=== PATIENT | male | born 1950 | race Hispanic/Latino ===

== ENCOUNTER 2018-04-15 19:23 | Inpatient (IN) | payer BC, MEDICARE ==
[~2018-04-15 19:23] MED LIST: ISOVUE-370 76%-LOCM 1 ML ONE
[2018-04-15] MEDS ORDERED: Acetaminophen 500 MG TAB ONE (19:48)
[2018-04-15 19:49] LABS: Bilirubin Negative (Negative); Blood, Urine Trace (Negative); Clarity CLOUDY (Clear); Glucose, Urine (Dipstick) >=1000 mg/dL (Negative); Leukocyte Small (Negative); Nitrite Negative (Negative); Protein, Urine (Dipstick) 100 mg/dL (Neg-Trace); Specific Gravity, Urine 1.028 (1.002-1.036); Urobilinogen 0.2 mg/dL (0.2-1.0)
[2018-04-15 19:51] LABS: Bacteria/HPF None Seen HPF (None Seen); Hyaline Casts/LPF 0-3 HYALINE CAST LPF (0-3 Hyaline); Pathc Cast-AUWi Flag 0.14 (0-2.49); Squamous Epithelial None Seen HPF (0-3)
[2018-04-15 19:55] LABS: #Eosinphils 0.1 thou/uL (0.0-0.7); #Lymphocytes 0.7 thou/uL (1.20-3.40); #Monocytes 0.5 thou/uL (0.11-0.59); %Basophils 0.2 % (0.0-1.0); %Eosinophils 1.1 % (0.0-10.0); %Lymphocytes 8.7 % (21.0-51.0); %Monocytes 5.8 % (0.0-10.0); %Neutrophils 84.2 % (42.0-75.0); Mean Corpuscular HGB CONC 33.4 g/dL (32.0-36.0); Mean Corpuscular Hemoglobin 31.5 pg (27.0-31.0); Mean Corpuscular Volume 94.6 fL (78.0-98.0); Mean Platelet Volume 7.7 fL (7.4-10.4); Platelet Count 279 thou/uL (130-400); RBC Distribution Width 11.2 % (11.5-14.5); White Blood Cell (WBC) Count 8.4 thou/uL (4.8-10.8)
[2018-04-15 20:15] LABS: ALT (SGPT) 16 U/L (8-55); AST (SGOT) 19 U/L (5-34); Albumin 4.1 g/dL (3.4-4.8); Alkaline Phosphatase 60 U/L (40-150); Anion Gap 15 mmol/L (10-20); BUN (Urea Nitrogen) 20 mg/dL (8.4-25.7); Bilirubin, Total 0.3 mg/dL (0.2-1.2); Calc. Creatinine Clearance 0 mL/min (70-130); Carbon Dioxide 22 mmol/L (23-31); Chloride 100 mmol/L (98-107); Estimated GFR-MDRD 52; Globulin 3.9 g/dL (2.4-3.5); Glucose 339 mg/dL (80-115); Potassium 4.5 mmol/L (3.5-5.1); Sodium 132 mmol/L (136-145)
[2018-04-15] MEDS ORDERED: Ondansetron HCl/PF 4 MG/2 ML Vial IVP PRN (20:22)
[2018-04-15] MEDS ORDERED: Acetaminophen 325 MG TAB PO PRN (20:22)
[2018-04-15] MEDS ORDERED: Piperacillin/Tazobactam 4.5 GM VIAL ONE (21:20)
[2018-04-15 21:36] LABS: Base Excess-Venous -4.6 mmol/L (0 (+/- 2.5)); Bicarbonate (HCO3v) 19.3 mmol/L (1.0-85.0); CO2 Tension (PvCO2) 30.4 mmHg (41.0-51.0); Calcium, Ionized 1.14 mmol/L (1.12-1.32); Hemoglobin - Calc 9.9 g/dL (12.0-18.0); O2 Tension (PvO2) 119.3 mmHg (35.0-45.0); Potassium 4.1 mmol/L (3.4-4.7); T. Carbon Dioxide 20.2 mmol/L (1.0-85.0); pH (Venous) 7.409 (7.35-7.45); vO2 Saturation-calc 98.8 % (94-98)
--- NOTE | 2018-04-15 21:42 | RAD ---
RADIOGRAPH CHEST 1 VIEW: HISTORY: 67-year-old male with sepsis, fever. FINDINGS: There is no air space density, pulmonary edema, or pneumothorax. The lateral costophrenic angles are sharp. IMPRESSION: No acute pulmonary findings. shai POS: [facility]
--- NOTE | 2018-04-15 23:00 | HP ---
PRIMARY CARE PHYSICIAN: Tanner Fall DO CODE STATUS: FULL CODE. TIME OF EVALUATION: 8:35 p.m. CHIEF COMPLAINT: Abdominal pain, right flank pain, and fever. HISTORY OF PRESENT ILLNESS: This is a 67-year-old male patient with past medical history of diabetes came to the hospital after having fever 103 to 103.9, also right flank pain. The symptoms have been present for 4 days. He got some ibuprofen at home, but did not improve. No clear triggers, no marily viating factors. The patient's symptoms got so severe that he decided to come to the hospital. The patient also reported associated dysuria, chills. REVIEW OF SYSTEMS: Constitutional: The patient has fever, chills, generalized weakness. Respirator y: No cough, sputum production, shortness of breath. Cardiovascular: No chest pain or palpitations . Gastrointestinal: The patient had nausea. No vomiting, diarrhea, or abdominal pain. Central Ner vous System: No dizziness, headache, or feeling lightheaded. Genitourinary: The patient has right flank pain and increased urinary frequency, dysuria. Extremities: No leg swelling. All other syste ms were reviewed and are negative except for the findings mentioned above. PAST MEDICAL HISTORY: Positive for diabetes, obesity, hyperlipidemia, hypertension. PAST SURGICAL HISTORY: Back surgery. PSYCHIATRIC HISTORY: No psychiatric history. SOCIAL HISTORY: No alcohol, no drugs, no smoking history. FAMILY HISTORY: Reviewed and noncontributory for current presentation. DRUG ALLERGIES: No known drug allergies reported. MEDICATIONS: Glyburide, , tamsulosin, fenofibrate. PHYSICAL EXAMINATION: VITAL SIGNS: On presentation, blood pressure 160/98 with heart rate 120, respiratory rate was 18, te mperature 103.1, pain 10/10, oxygen saturation 98 on room air. GENERAL APPEARANCE: The patient is alert, oriented, not in acute distress. HEENT: Eyes, normal conjunctivae. Moist oral mucosa. Anicteric. NECK: No JVD. RESPIRATORY: Bilateral air entry. No rales, no wheezing. Symmetric expansion. CARDIOVASCULAR: The patient is tachycardic, normal rhythm. No murmurs. No gallop. No edema. ABDOMEN: Soft. Normal bowel sounds. MUSCULOSKELETAL: Baseline range of motion and strength. No tenderness. SKIN: Warm and intact. No pallor, no rash, no redness. Peripheral pulses are present. Capillary r efill seems to be intact. NEUROLOGIC: Baseline sensorium. No evidence of any new focal weakness. Baseline speech. Cranial n erves seems to be intact. PSYCHIATRIC: The patient is in good mood. No anxiety. Oriented. Optimal judgment. GENITOURINARY: The patient has right flank pain that is moderate to severe during my examination. IMAGING: Chest x-ray was done. The patient had no acute pulmonary findings. CAT scan of the abdome n to rule out complicated UTI was ordered and still pending. LABORATORY DATA: Labs were reviewed. The patient has white count 8.4, hemoglobin 12, hematocrit 36, MCV 94. Blood gas, VBG was done. The patient has pH 7.4. Chemistry: Sodium 132, potassium 4.5, c hloride 100, carbon dioxide 22, anion gap 15, creatinine 1.37. We do not have a previous value for c reatinine to compare. GFR 52, glucose 339. LFTs were normal. Globulin 3.9, albumin globulin ratio is 1.1. Urinalysis was done. White count was greater than 50, too numerous to count, with glucosuri a and proteinuria. ASSESSMENT AND PLAN: The patient will be placed in the hospital with following medical problems: 1. Sepsis. The patient has fever, tachycardia. Source is right urinary tract infection, possible p yelonephritis. We will do CAT scan to rule out complicated UTI being a male patient with these sympt oms on presentation and also because the patient is diabetic, high risk for complications. The patie nt has been started on antibiotics. We will follow up cultures. We will adjust treatment as needed. 2. Urinary tract infection. Treatment as above. 3. Chronic normocytic anemia. Hemoglobin is 12. This is mild. No need for any acute intervention as inpatient. 4. Hyponatremia with sodium 132. This is minimal. No need for any acute intervention. 5. Mild metabolic acidosis with a CO2 of 22. This may be related to acute kidney injury. We will t reat underlying condition. 6. Possible acute kidney injury. We do not have a previous value to compare. Creatinine is 1.37 wi th GFR of 52. We will hydrate. We will monitor kidney function. We will adjust treatment as needed . If not improved, he might need Nephro for assistance with this case. 7. Uncontrolled diabetes with blood sugar 339. The patient is hyperglycemic. We will place the pat ient on sliding scale. We will adjust treatment as needed. 8. Obesity. The patient is advised to lose weight. 9. Hyperlipidemia. Low-cholesterol diet is advised. 10. Uncontrolled blood pressure. The patient presented with systolic blood pressure 179. We will r econcile home meds. We will adjust treatment as needed. We will not treat aggressively since the pa tient is septic and had high risk of septic shock and hemodynamic decompensation. 11. Deep venous thrombosis prophylaxis.
[2018-04-15] MEDS ORDERED: Dextrose 50% Abboject 50 ML SYRINGE SLOW IVP PRN (23:29)
[2018-04-15] MEDS ORDERED: Dextrose 5% in Water 1,000 ML IV PRN (23:29)
[2018-04-16] MEDS: Sodium Chloride 0.9% 1,000 ML IV SCH ×3 (00:12→20:05)
[2018-04-16] MEDS: cefTRIAXone\\ROCEPHIN 1 GM in Sodium Chloride 0.9% 100 ML IVPB SCH (00:15)
[2018-04-16] MEDS: Heparin 5,000 UNITS/ML VIAL SC SCH ×4 (02:13→20:23)
[2018-04-16 05:04] LABS: #Eosinphils 0.1 thou/uL (0.0-0.7); #Monocytes 1.1 thou/uL (0.11-0.59); #Neutrophils 7.3 thou/uL (1.40-6.50); %Basophils 0.3 % (0.0-1.0); %Eosinophils 0.8 % (0.0-10.0); %Lymphocytes 10.1 % (21.0-51.0); %Monocytes 11.2 % (0.0-10.0); %Neutrophils 77.7 % (42.0-75.0); Hemoglobin 10.1 g/dL (14.0-18.0); Mean Corpuscular HGB CONC 32.2 g/dL (32.0-36.0); Mean Corpuscular Hemoglobin 30.6 pg (27.0-31.0); Mean Platelet Volume 7.7 fL (7.4-10.4); Platelet Count 237 thou/uL (130-400); RBC Distribution Width 11.4 % (11.5-14.5); Red Blood Cell (RBC) Count 3.31 mill/uL (4.70-6.10); White Blood Cell (WBC) Count 9.4 thou/uL (4.8-10.8)
[2018-04-16 05:35] LABS: Anion Gap 10 mmol/L (10-20); BUN (Urea Nitrogen) 17 mg/dL (8.4-25.7); Calc. Creatinine Clearance 0 mL/min (70-130); Calcium 8.2 mg/dL (7.8-10.44); Carbon Dioxide 19 mmol/L (23-31); Chloride 105 mmol/L (98-107); Estimated GFR-MDRD 62; Glucose 330 mg/dL (80-115); Potassium 4.1 mmol/L (3.5-5.1); Sodium 130 mmol/L (136-145)
[2018-04-16] MEDS: HumaLOG 300 UNITS/3 ML VIAL SC PRN ×3 (06:27→17:35)
--- NOTE | 2018-04-16 08:17 | CT ---
PRELIMINARY REPORT/[facility]/EMERGENTY AFTER-HOURS PROCEDURE CT Abdomen and Pelvis With Intravenous Contrast CLINICAL HISTORY: 67 years old, male; Pain; Abdominal pain; Generalized; Patient HX: Abd pain. R/O complicated uti TECHNIQUE: Axial computed tomography images of the abdomen and pelvis with intravenous contrast. Coronal reformatted images were created and reviewed. COMPARISON: No relevant prior studies available. FINDINGS: Calcified granuloma in the right middle lobe. The lung bases otherwise appear essentially clear. Coronary artery calcifications noted. Kidneys: No hydronephrosis of either kidney. No visible renal or ureteral calculus. Mild perinephric stranding bilaterally. This is a nonspecific appearance and could well be chronic. Possibility of pyelonephritis is not entirely excluded, please correlate clinically. No significant perinephric fluid. The kidneys enhance homogeneously. No definite gallbladder abnormality by CT. No biliary tree dilation. Unremarkable appearance of the liver, spleen, adrenal glands, and pancreas. No free air, ascites, or bowel distention. No evidence for abdominal aortic aneurysm. No retroperitoneal adenopathy. CT pelvis: Moderate diffuse urinary bladder wall thickening, with some indistinctness of the wall. While nonspecific, findings are suspicious for possible cystitis. Please correlate clinically. The appendix is visualized and appears normal. There are no CT findings to strongly suggest diverticulitis. Prominent enlargement with transverse diameter of almost 6 cm. Correlation with PSA levels may be use ful to help exclude prostate malignancy. IMPRESSION: Moderate diffuse urinary bladder wall thickening, suspicious for possible cystitis. No hydronephrosis of either kidney. No visible renal or ureteral calculus. Mild perinephric stranding bilaterally, see above discussion. No free air or bowel distention. Normal appendix. Prominent prostate enlargement, details above. Other findings discussed above. Thank you for allowing us to participate in the care of your patient. Dictated and Authenticated by: Tai Spring MD 04/16/2018 1:58 AM Central Time ([place] & [place]) FINAL REPORT CT ABDOMEN AND PELVIS WITH IV CONTRAST: DATE: 04/16/18. TIME: Performed on an emergency basis at 0044 hours. HISTORY: Abdominal pain. Fever. FINDINGS: NO comparison. Agree with the preliminary report by Dr. Spring from [facility]. Urinary bladd er wall thickening and adjacent haziness is suspicious for cystitis. Correlation with other clinical findings is required. POS: [facility]
[2018-04-16] MEDS ORDERED: Prevnar 13-Val Conj/PF 0.5 ML SYRINGE IM ONE (09:00)
[2018-04-16] MEDS: Insulin Glargine 15 UNITS in Pre-Filled Syringe 1 EACH SC SCH ×2 (10:17→20:23)
--- NOTE | 2018-04-16 12:25 | PDOC.PN ---
- Subjective Encounter Start Date: 04/16/18 Encounter Start Time: 09:45 Subjective: c/o abd pain in rlq, urinary freq and urgency is better -: overall is feeling better than when he came to ER - Objective Resuscitation Status: Resuscitation Status FULL:Full Resuscitation MAR Reviewed: Yes Vital Signs & Weight: Vital Signs (12 hours) Temp Pulse Resp BP Pulse Ox 04/16/18 10:39 100.1 F H 97 22 H 119/67 93 L 04/16/18 03:53 98.0 F 97 16 103/58 L 93 L Weight Weight 7.993 oz I&O: 04/15/18 04/16/18 04/17/18 06:59 06:59 06:59 Intake Total 1090 Output Total 600 Balance 490 Result Diagrams: 04/16/18 04:17 04/16/18 04:17 Additional Labs: Accuchecks 04/16/18 04/15/18 06:12 23:47 POC Glucose 306 H 305 H Phys Exam - Physical Examination HEENT: PERRLA, moist MMs Neck: no JVD, supple Respiratory: no wheezing, no rales Cardiovascular: RRR, no significant murmur Gastrointestinal: soft, positive bowel sounds rlq tenderness+, no rigidity Musculoskeletal: no edema, pulses present Neurological: non-focal, moves all 4 limbs Psychiatric: normal affect, A&O x 3 Dx/Plan (1) Pyelonephritis Code(s): N12 - TUBULO-INTERSTITIAL NEPHRITIS, NOT SPCF ACUTE OR CHRONIC Status: Acute (2) Sepsis Code(s): A41.9 - SEPSIS, UNSPECIFIED ORGANISM Status: Acute Qualifiers: Sepsis type: sepsis due to unspecified organism Qualified Code(s): A41.9 - Sepsis, unspecified organism (3) DM type 2 (diabetes mellitus, type 2) Status: Chronic Qualifiers: Diabetes mellitus halfway insulin use: without terminal block assembler use Diabetes mellitus complication status: with unspecified complications Qualified Code(s) : E11.8 - Type 2 diabetes mellitus with unspecified complications (4) HTN (hypertension) Code(s): I10 - ESSENTIAL (PRIMARY) HYPERTENSION Status: Chronic Qualifiers: Hypertension type: essential hypertension Qualified Code(s): I10 - Essential (primary) hypertension (5) Dyslipidemia Code(s): E78.5 - HYPERLIPIDEMIA, UNSPECIFIED Status: Chronic (6) Anemia Code(s): D64.9 - ANEMIA, UNSPECIFIED Status: Chronic Qualifiers: Anemia type: unspecified type Qualified Code(s): D64.9 - Anemia, unspecified (7) Metabolic acidosis Code(s): E87.2 - ACIDOSIS Status: Acute (8) Hyponatremia Code(s): E87.1 - HYPO-OSMOLALITY AND HYPONATREMIA Status: Acute - Plan ct abd results noted -: is on ceftriaxone -: iv fluids, lantus bid -: to ambulate as tolerated -: await cultures * . Review of Systems - Medications/Allergies Allergies/Adverse Reactions: Allergies Allergy/AdvReac Type Severity Reaction Status Date / Time No Known Allergies Allergy Verified 04/15/18 23:18 Medications: Current Medications Acetaminophen (Tylenol) 650 mg PO Q4H PRN PRN Reason: Headache/Fever or Pain Last Admin: 04/16/18 10:48 Dose: 650 mg Dextrose/Water (Dextrose 50%) 25 gm SLOW IVP PRN PRN PRN Reason: Hypoglycemia Glucagon (Glucagon) 1 mg IM PRN PRN PRN Reason: Hypoglycemia Heparin Sodium (Porcine) (Heparin) 5,000 units SC TID [facility] Last Admin: 04/16/18 09:33 Dose: 5,000 units Ceftriaxone Sodium 1 gm/ (Sodium Chloride) 100 mls @ 200 mls/hr IVPB Q24HR [facility] Last Admin: 04/16/18 00:15 Dose: 100 mls Sodium Chloride (Normal Saline 0.9%) 1,000 mls @ 125 mls/hr IV .Q8H [facility] Last Admin: 04/16/18 09:31 Dose: 1,000 mls Dextrose/Water (D5w) 1,000 mls @ 0 mls/hr IV .Q0M PRN PRN Reason: Hypoglycemia Insulin Glargine 15 units/ (Miscellaneous Medication) 0.15 mls @ 0 mls/hr SC BID [facility] Last Admin: 04/16/18 10:17 Dose: 0.15 mls Insulin Human Lispro (Humalog) 0 units SC .MILD SLIDING SCALE PRN PRN Reason: Mild Correctional Scale Last Admin: 04/16/18 06:27 Dose: 5 unit Ondansetron HCl (Zofran) 4 mg IVP Q6H PRN PRN Reason: Nausea/Vomiting
[2018-04-17] MEDS: cefTRIAXone\\ROCEPHIN 1 GM in Sodium Chloride 0.9% 100 ML IVPB SCH ×2 (00:02→23:56)
[2018-04-17] MEDS: Sodium Chloride 0.9% 1,000 ML IV SCH ×4 (03:52→23:56)
[2018-04-17] MEDS: HumaLOG 300 UNITS/3 ML VIAL SC PRN ×2 (05:18→15:28)
[2018-04-17] MEDS: Tamsulosin HCl 0.4 MG CAP PO SCH ×2 (08:28→22:09)
[2018-04-17] MEDS: Heparin 5,000 UNITS/ML VIAL SC SCH ×3 (08:28→22:10)
[2018-04-17] MEDS: Fenofibrate Nanocrystallized 145 MG TAB PO SCH (08:28)
[2018-04-17] MEDS: Insulin Glargine 15 UNITS in Pre-Filled Syringe 1 EACH SC SCH ×2 (08:28→22:09)
[2018-04-17] MEDS: Atorvastatin Calcium 20 MG TAB PO SCH (08:28)
[2018-04-17] MEDS ORDERED: GLYBURIDE PO SCH ×2 (09:00→21:00)
[2018-04-17] MEDS ORDERED: METFORMIN HCL PO SCH ×2 (09:00→21:00)
[2018-04-17] MEDS ORDERED: [UNRECOGNIZED DRUG - OTHER] PO SCH (09:00)
[2018-04-17] MEDS ORDERED: Lisinopril 10 MG TAB PO SCH (09:00)
[2018-04-17 09:16] LABS: Anion Gap 10 mmol/L (10-20); BUN (Urea Nitrogen) 11 mg/dL (8.4-25.7); Calc. Creatinine Clearance 0 mL/min (70-130); Calcium 8.7 mg/dL (7.8-10.44); Carbon Dioxide 22 mmol/L (23-31); Chloride 108 mmol/L (98-107); Estimated GFR-MDRD 89; Glucose 174 mg/dL (80-115); Potassium 3.8 mmol/L (3.5-5.1); Sodium 136 mmol/L (136-145)
[2018-04-17] MEDS: Pioglitazone HCl 45 MG TAB PO SCH (10:12)
--- NOTE | 2018-04-17 12:34 | PDOC.PN ---
- Subjective Encounter Start Date: 04/17/18 Encounter Start Time: 10:30 Subjective: feels better -: no abd pain this morning -: is ambulating in room, no sob - Objective Resuscitation Status: Resuscitation Status FULL:Full Resuscitation MAR Reviewed: Yes Vital Signs & Weight: Vital Signs (12 hours) Temp Pulse Resp BP Pulse Ox 04/17/18 07:42 98.3 F 77 17 130/76 92 L Weight Weight 7.993 oz I&O: 04/16/18 04/17/18 04/18/18 06:59 06:59 06:59 Intake Total 1090 1800 Output Total 600 1000 Balance 490 800 Result Diagrams: 04/16/18 04:17 04/17/18 08:26 Additional Labs: Accuchecks 04/17/18 04/17/18 04/16/18 11:58 05:17 20:22 POC Glucose 245 H 216 H 241 H 04/16/18 04/16/18 16:49 12:56 POC Glucose 336 H 286 H Phys Exam - Physical Examination HEENT: PERRLA, moist MMs Neck: no JVD, supple Respiratory: no wheezing, no rales Cardiovascular: RRR, no significant murmur Gastrointestinal: soft, non-tender, positive bowel sounds Musculoskeletal: no edema, pulses present Neurological: non-focal, moves all 4 limbs Psychiatric: normal affect, A&O x 3 Dx/Plan (1) Pyelonephritis Code(s): N12 - TUBULO-INTERSTITIAL NEPHRITIS, NOT SPCF ACUTE OR CHRONIC Status: Acute (2) Sepsis Code(s): A41.9 - SEPSIS, UNSPECIFIED ORGANISM Status: Acute Comment: klebsiella pneumoniae (3) DM type 2 (diabetes mellitus, type 2) Status: Chronic Qualifiers: Diabetes mellitus usp insulin use: without usp use Diabetes mellitus complication status: with unspecified complications Qualified Code(s) : E11.8 - Type 2 diabetes mellitus with unspecified complications (4) HTN (hypertension) Code(s): I10 - ESSENTIAL (PRIMARY) HYPERTENSION Status: Chronic Qualifiers: Hypertension type: essential hypertension Qualified Code(s): I10 - Essential (primary) hypertension (5) Dyslipidemia Code(s): E78.5 - HYPERLIPIDEMIA, UNSPECIFIED Status: Chronic (6) Anemia Code(s): D64.9 - ANEMIA, UNSPECIFIED Status: Chronic Qualifiers: Anemia type: unspecified type Qualified Code(s): D64.9 - Anemia, unspecified (7) Metabolic acidosis Code(s): E87.2 - ACIDOSIS Status: Resolved (8) Hyponatremia Code(s): E87.1 - HYPO-OSMOLALITY AND HYPONATREMIA Status: Resolved - Plan dm is getting controlled -: dc plan in am on levaquin/cipro, had low sbp early this am -: psa is elevated, will set up outpt appt with uro if he is not seeing one al -: on ceftriaxone, add home dose of glyburide, metformin and actos -: to ambulate more, bladder postvoid residual to be documented * . Review of Systems - Medications/Allergies Allergies/Adverse Reactions: Allergies Allergy/AdvReac Type Severity Reaction Status Date / Time No Known Allergies Allergy Verified 04/15/18 23:18 Medications: Current Medications Acetaminophen (Tylenol) 650 mg PO Q4H PRN PRN Reason: Headache/Fever or Pain Last Admin: 04/16/18 10:48 Dose: 650 mg Atorvastatin Calcium (Lipitor) 20 mg PO DAILY [facility] Last Admin: 04/17/18 08:28 Dose: 20 mg Dextrose/Water (Dextrose 50%) 25 gm SLOW IVP PRN PRN PRN Reason: Hypoglycemia Fenofibrate (Tricor) 145 mg PO DAILY [facility] Last Admin: 04/17/18 08:28 Dose: 145 mg Glucagon (Glucagon) 1 mg IM PRN PRN PRN Reason: Hypoglycemia Glyburide (Diabeta) 5 mg PO HS [facility] Glyburide (Diabeta) 10 mg PO 0730 [facility] Heparin Sodium (Porcine) (Heparin) 5,000 units SC TID [facility] Last Admin: 04/17/18 08:28 Dose: 5,000 units Ceftriaxone Sodium 1 gm/ (Sodium Chloride) 100 mls @ 200 mls/hr IVPB Q24HR [facility] Last Admin: 04/17/18 00:02 Dose: 100 mls Sodium Chloride (Normal Saline 0.9%) 1,000 mls @ 125 mls/hr IV .Q8H [facility] Last Admin: 04/17/18 10:12 Dose: 1,000 mls Dextrose/Water (D5w) 1,000 mls @ 0 mls/hr IV .Q0M PRN PRN Reason: Hypoglycemia Insulin Glargine 15 units/ (Miscellaneous Medication) 0.15 mls @ 0 mls/hr SC BID [facility] Last Admin: 04/17/18 08:28 Dose: 0.15 mls Insulin Human Lispro (Humalog) 0 units SC .MILD SLIDING SCALE PRN PRN Reason: Mild Correctional Scale Last Admin: 04/17/18 05:18 Dose: 3 unit Metformin HCl (Glucophage) 500 mg PO HS [facility] Metformin HCl (Glucophage) 1,000 mg PO 0730 [facility] Ondansetron HCl (Zofran) 4 mg IVP Q6H PRN PRN Reason: Nausea/Vomiting Pioglitazone HCl (Actos) 45 mg PO DAILY [facility] Last Admin: 04/17/18 10:12 Dose: 45 mg Sodium Chloride (Flush - Normal Saline) 10 ml IVF Q12HR [facility] Last Admin: 04/17/18 08:29 Dose: Not Given Sodium Chloride (Flush - Normal Saline) 10 ml IVF PRN PRN PRN Reason: Saline Flush Tamsulosin HCl (Flomax) 0.4 mg PO BID [facility] Last Admin: 04/17/18 08:28 Dose: 0.4 mg
[2018-04-17 20:18] VITALS: TEMP 98
[2018-04-17] MEDS ORDERED: glyBURIDE 5 MG TAB PO SCH (21:00)
[2018-04-17] MEDS ORDERED: [UNRECOGNIZED DRUG - OTHER] PO SCH (21:00)
[2018-04-17] MEDS ORDERED: metFORMIN 500 MG TAB PO SCH (21:00)
[2018-04-18] MEDS ORDERED: metFORMIN 500 MG TAB PO SCH (07:30)
[2018-04-18] MEDS ORDERED: glyBURIDE 5 MG TAB PO SCH (07:30)
[2018-04-18 07:31] VITALS: BP 147/71
[2018-04-18] MEDS: Fenofibrate Nanocrystallized 145 MG TAB PO SCH (08:27)
[2018-04-18] MEDS: Pioglitazone HCl 45 MG TAB PO SCH (08:27)
[2018-04-18] MEDS: Tamsulosin HCl 0.4 MG CAP PO SCH (08:27)
[2018-04-18] MEDS: Atorvastatin Calcium 20 MG TAB PO SCH (08:27)
[2018-04-18] MEDS: Heparin 5,000 UNITS/ML VIAL SC SCH (08:28)
[2018-04-18] MEDS ORDERED: Finasteride 5 MG TAB PO SCH (09:00)
[2018-04-18] MEDS: Insulin Glargine 15 UNITS in Pre-Filled Syringe 1 EACH SC SCH (10:15)
--- NOTE | 2018-04-18 20:34 | PDOC.PN ---
- Subjective Encounter Start Date: 04/18/18 Encounter Start Time: 07:45 Subjective: no chills or fever, no abd pain -: feels good, is amb and eating well - Objective Resuscitation Status: Resuscitation Status FULL:Full Resuscitation MAR Reviewed: Yes Vital Signs & Weight: Weight Weight 7.993 oz I&O: 04/17/18 04/18/18 04/19/18 06:59 06:59 06:59 Intake Total 1800 Output Total 1000 Balance 800 Result Diagrams: 04/16/18 04:17 04/17/18 08:26 Additional Labs: Accuchecks 04/18/18 04/18/18 04/17/18 10:20 06:06 20:34 POC Glucose 252 H 216 H 350 H Phys Exam - Physical Examination HEENT: PERRLA, moist MMs Neck: no JVD, supple Respiratory: no wheezing, no rales Cardiovascular: RRR, no significant murmur Gastrointestinal: soft, non-tender, positive bowel sounds Musculoskeletal: no edema, pulses present Neurological: non-focal, moves all 4 limbs Psychiatric: normal affect, A&O x 3 Dx/Plan (1) Pyelonephritis Code(s): N12 - TUBULO-INTERSTITIAL NEPHRITIS, NOT SPCF ACUTE OR CHRONIC Status: Acute (2) Sepsis Code(s): A41.9 - SEPSIS, UNSPECIFIED ORGANISM Status: Acute Comment: klebsiella pneumoniae (3) DM type 2 (diabetes mellitus, type 2) Status: Chronic Qualifiers: Diabetes mellitus intermediate project manager insulin use: without intermediate project manager use Diabetes mellitus complication status: with unspecified complications Qualified Code(s) : E11.8 - Type 2 diabetes mellitus with unspecified complications (4) HTN (hypertension) Code(s): I10 - ESSENTIAL (PRIMARY) HYPERTENSION Status: Chronic Qualifiers: Hypertension type: essential hypertension Qualified Code(s): I10 - Essential (primary) hypertension (5) Dyslipidemia Code(s): E78.5 - HYPERLIPIDEMIA, UNSPECIFIED Status: Chronic (6) Anemia Code(s): D64.9 - ANEMIA, UNSPECIFIED Status: Chronic Qualifiers: Anemia type: unspecified type Qualified Code(s): D64.9 - Anemia, unspecified (7) Metabolic acidosis Code(s): E87.2 - ACIDOSIS Status: Resolved (8) Hyponatremia Code(s): E87.1 - HYPO-OSMOLALITY AND HYPONATREMIA Status: Resolved - Plan hemostable -: levaquin -: to f/u with , d/w patient and at bedside -: dc pt home * .
--- NOTE | 2018-04-18 22:37 | DIS ---
DATE OF ADMISSION: 04/15/2018 DATE OF DISCHARGE: 04/18/2018 DISCHARGE DISPOSITION: To home. PRIMARY DISCHARGE DIAGNOSIS: Sepsis due to pyelonephritis. SECONDARY DISCHARGE DIAGNOSES: Diabetes mellitus type 2, elevated PSA for further evaluation with en larged prostate, hypertension, dyslipidemia, anemia, metabolic acidosis, hyponatremia, the last two g ot resolved. PROCEDURES DONE DURING HOSPITALIZATION: The patient has had CT of the abdomen and pelvis done which showed moderate diffuse urinary bladder wall thickening suspicious for possible cystitis. No hydrone phrosis of either kidney. No visible calculus was seen. Mild perinephric stranding was seen bilater ally. No free air or bowel obstruction, seen normal appendix, prominent prostate enlargement was see n. Urine culture grew Klebsiella sensitive to quinolones. Blood cultures x2 no growth. Influenza A and B antigens were negative. Discharge BUN and creatinine is 11 and 0.8. PSA levels were 16.89. DISCHARGE MEDICATIONS: Levaquin 500 mg p.o. daily for another 6 days; atorvastatin 20 mg p.o. daily; fenofibrate 145 mg p.o. daily; glyburide with metformin 5/500 mg 2 tabs q.a.m. and 1 tab p.o. at bed time; lisinopril 10 mg twice daily; pioglitazone 45 mg p.o. daily; finasteride 5 mg p.o. daily, it is a new medication; Flomax 0.4 mg p.o. twice daily, it is a new medication from this discharge. ALLERGIES: No known drug allergies. DISCHARGE PLAN: The patient has been set up to see Dr. Phillips on 05/11/2018 at 10:15 a.m. He n eeds follow up with primary care physician in 1 week. BRIEF COURSE DURING HOSPITALIZATION: The patient initially came to ER with complaints of fever, chil ls, and abdominal pain. He was admitted for sepsis and pyelonephritis. The patient likely had bladd er outlet obstruction with enlarged prostate. He had bladder wall thickening seen on the CAT scan wi th bilateral kidney stranding. The patient's urine culture grew Klebsiella sensitive to quinolones. Blood cultures showed no growth. He was aggressively hydrated and has responded well to IV antibiot ics. He has been switched over to Levaquin and needs to continue for another 6 days. His PSA levels were elevated and outpatient appointment with Dr. [facility] He is hemodynamically stable, ambulating and will be shortly discharged home. Ple ase note, Flomax, Proscar, and Levaquin are the new medications for this discharge. Please see a fac e-to-face documentation on [facility] for the day of discharge.
== END 2018-04-18 10:34 | disposition home or self-care (01) | DRG 872 ==
LOC: ERS 19:23 → T4-A 20:39
PROVIDERS: ADMIT Hospitalist; ATTEND Hospitalist
DX: A41.4 Sepsis due to anaerobes (principal); E87.1 Hypo-osmolality and hyponatremia; N17.9 Acute kidney failure, unspecified; N12 Tubulo-interstitial nephritis, not specified as acute or chronic; E87.2 Acidosis; E78.5 Hyperlipidemia, unspecified; I10 Essential (primary) hypertension; E66.9 Obesity, unspecified; D64.9 Anemia, unspecified; E11.65 Type 2 diabetes mellitus with hyperglycemia
CPT/HCPCS: 36415; 36416; 71045; 74160; 80048; 80053; 81003; 81015; 82330; 82803; 83605; 84153; 85025; 87040; 87077; 87086; 87186; 87804; 90471; 90670; 96361; 96365; 96366; A4216; G0009; J0696; J1644; J2543; J3370; J7050